=== PATIENT | female | born 1995 | race African-American/Black ===

== ENCOUNTER 2019-10-31 16:21 | Emergency (ER) | payer OTHER ==
[~2019-10-31] VITALS: Ht 172.7 cm; Wt 108.9 kg
[2019-10-31 17:42] LABS: CALCIUM 8.8 mg/dL (8.5-10.1); CARBON DIOXIDE 24.3 mmol/L (21-32); CHLORIDE SERUM 104 mmol/L (98-107); CREATININE SERUM 0.9 mg/dL (0.6-1.0); GFR1 > 60 mL/min; GLUCOSE SERUM 120 mg/dL (74-106); POTASSIUM SERUM 3.8 mmol/L (3.5-5.1); SODIUM SERUM 139 mmol/L (136-145)
[2019-10-31 17:47] LABS: ALBUMIN 3.9 g/dL (3.4-5.0); ALKALINE PHOSPHATASE 73 U/L (46-116); ALT/SGPT 67 U/L (14-59); AST/SGOT 80 U/L (15-37); BILIRUBIN TOTAL 0.51 mg/dL (0.20-1.00); LIPASE 48 IU/L (73-393); TOTAL PROTEIN, SERUM 7.6 g/dL (6.4-8.2)
[2019-10-31 17:49] LABS: BASOPHIL % 0.1 % (0-2)
[2019-10-31 18:12] LABS: RED CELL DISTRIBUTION WIDTH 18.3 % (11.5-14.5)
[2019-10-31 19:15] LABS: BASOPHIL % 0.2 % (0-2); PLATELET COUNT 341 x10^3mcL (130-400)
[2019-10-31 19:16] LABS: RED CELL DISTRIBUTION WIDTH 18.5 % (11.5-14.5)
[2019-10-31 19:19] LABS: PLATELET COUNT 14 x10^3mcL (130-400)
[2019-11-01 00:20] VITALS: BP 124/88
== END 2019-11-01 00:20 | disposition home or self-care (01) ==
LOC: ED 16:21
PROVIDERS: Emergency Medicine
DX: S22.41XA Multiple fractures of ribs, right side, initial encounter for closed fracture (principal); S61.511A Laceration without foreign body of right wrist, initial encounter; S81.012A Laceration without foreign body, left knee, initial encounter; S50.811A Abrasion of right forearm, initial encounter; V49.49XA Driver injured in collision with other motor vehicles in traffic accident, initial encounter; Y93.I9 Activity, other involving external motion; Y92.411 Interstate highway as the place of occurrence of the external cause; Y99.8 Other external cause status
CPT/HCPCS: 90715; 94150; J2001; J2270; J2405; J3010; Q0092; Q0162; Q9967